=== PATIENT | male | born 1995 | race Caucasian/White ===

== ENCOUNTER 2019-05-29 22:57 | Emergency (ER) | payer OTHER ==
[~2019-05-29] VITALS: Ht 180.3 cm; Wt 77.1 kg
[2019-05-29 23:00] VITALS: BP_SYST 144
--- NOTE | 2019-05-30 01:07 | NUR ---
Patient to ER bed 4 to gown for evaluation. Side rails up. Report given to Evelyn CORRAL.
--- NOTE | 2019-05-30 01:10 | NUR ---
Patient brought in with friend for laceration to left 1st finger. Bleeding controlled. Unknown TdaP. Pain 0/10. No other complaints/injuries per patient or as noted. Will continue to monitor.
[2019-05-30] MEDS ORDERED: DIPH-TET-PERTUS Vaccine 0.5 ML VIAL (ADACEL) I.M. ONE (01:30)
[2019-05-30] MEDS ORDERED: LIDOCAINE 1% 10 MG/ML, 20 ML MDV INJ ONE (01:30)
--- NOTE | 2019-05-30 01:32 | NUR ---
Patient has a 1 cm laceration to Left 1st finger. Dr. Mane applied 3 sutures using sterile technique. Edges well approximated. Site cleansed with normal saline and iodine. Dressing of guaze applied to site. No bleeding noted. Pt tolerated well.
[2019-05-30 01:54] VITALS: BP_SYST 144
--- NOTE | 2019-05-30 01:54 | NUR ---
Patient given written and verbal discharge instructions and verbalizes understanding. ER MD discussed with patient the results and treatment provided. Patient in stable condition. ID arm band removed. No Rx given. Patient educated on pain management and to follow up with PMD in 2-3 days. Pain Scale 0/10 Opportunity for questions provided and answered. Medication side effect fact sheet provided.
== END 2019-05-30 01:54 | disposition home or self-care (01) ==
LOC: SED 22:57
DX: S61.012A Laceration without foreign body of left thumb without damage to nail, initial encounter (principal); R03.0 Elevated blood-pressure reading, without diagnosis of hypertension; W26.8XXA Contact with other sharp object(s), not elsewhere classified, initial encounter; Y93.89 Activity, other specified; Y92.89 Other specified places as the place of occurrence of the external cause; Y99.8 Other external cause status
CPT/HCPCS: 12001; 90471; 90715; 99283; J2001